=== PATIENT | female | born 1990 | race Caucasian/White ===

== ENCOUNTER 2024-05-16 08:50 | Inpatient (IN) | payer SELFPAY ==
[2024-05-16 09:27] VITALS: BP 127/86; PULSE 105; RESP 16; TEMP 36.7; O2SAT 99
[2024-05-16] MEDS: hyDROXYzine 25 mg Capsule 50 MG PO (09:39)
[2024-05-16] MEDS: OLANZapine 5 mg ODT PO (13:52)
[2024-05-16 13:53] VITALS: BP 114/72; PULSE 106; RESP 16; TEMP 36.9; O2SAT 100
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
[2024-05-16] MEDS: sertraline 50 mg Tablet 25 MG PO (16:30)
[2024-05-16 19:53] VITALS: BMI 27.3
[2024-05-16 19:59] VITALS: BP 115/79; PULSE 89; RESP 16; TEMP 37.1; O2SAT 100
[2024-05-17 06:00] VITALS: BP 113/70; PULSE 84; RESP 16; TEMP 36.8; O2SAT 96
[2024-05-17] MEDS: hyDROXYzine 25 mg Capsule 50 MG PO ×2 (08:10→19:31)
[2024-05-17] MEDS: sertraline 50 mg Tablet 25 MG PO (08:10)
[2024-05-17] MEDS: acetaminophen 325 mg Tablet 650 MG PO (08:10)
[2024-05-17 12:31] VITALS: BP 120/85; PULSE 109; RESP 18; TEMP 36.6; O2SAT 97
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
[2024-05-17 19:27] VITALS: BP 128/87; PULSE 86; RESP 17; O2SAT 98
[2024-05-18 06:00] VITALS: BP 123/75; PULSE 115; RESP 16; TEMP 37.1; O2SAT 97
[2024-05-18] MEDS: ondansetron 4 MG Tablet PO (08:02)
[2024-05-18] MEDS: sertraline 50 mg Tablet PO (08:02)
[2024-05-18] MEDS: acetaminophen 325 mg Tablet 650 MG PO (13:40)
[2024-05-18 14:00] VITALS: BP 113/83; PULSE 117; RESP 18; TEMP 37.2; O2SAT 97
--- NOTE | 2024-05-18 16:23 | W.PM.NPUPNS ---
Subjective NPU Subjective: 34-year-old female with a history of depression, agoraphobia with panic attacks, and PTSD admitted with worsening depression and fleeting suicidal ideation. The patient had reported that she was feeling a little bit better. She had endorsed depression and reported some improved sleep with trazodone. The patient had continued to isolate herself in her room. She had continued report difficulty with being in crowds and with new people. She had reported that she had felt better about going to [place] to live with her sister. Mental Status Exam MSE Comments: Patient is a casually dressed white female with limited hygiene and normal gait. There was no evidence of any abnormal involuntary motor movements tics or tremors appreciated. There was evidence of mild psychomotor retardation. Her mood was described as a little better. Her affect was restricted in range and mood congruent. She denied suicidal ideation. She denied any homicidal ideation. She did not appear to be responding to internal stimuli. There was no clear evidence of delusional thinking. Her attention span appeared fair. Her speech was normal in regards to rate rhythm and prosody. Her thought process was linear logical and goal-directed. Her recent and remote memory were grossly intact. She was alert and oriented to person place time and situation. Her insight is improving. Her judgment is poor. Her impulse control remained guarded. Vitals/I&O/Wt Last Vital Signs Temp 98.7 F 05/18/24 06:00 Pulse 115 H 05/18/24 06:00 Resp 16 05/18/24 06:00 BP 123/75 05/18/24 06:00 Pulse Ox 97 05/18/24 06:00 O2 Del Method Room Air 05/16/24 13:53 Weight last 48 hrs Weight 74.661 kg A&P Assessment and plan (1) MDD (major depressive disorder), recurrent severe, without psychosis: (2) PTSD (post-traumatic stress disorder): (3) Agoraphobia with panic attacks: Plan 34-year-old female with a history of PTSD, and major depressive disorder admitted with suicidal ideation currently on no medications at this time with recent exacerbation of mood stemming from increased stress with loss of 2 children from her home environment which appears to be triggering her past trauma in childhood. #1.? Engage patient in individual milieu and group therapy. #2?? Recommend sober living treatment at the highest level of care to which the patient is willing to commit #3???Continue zoloft 50mg daily. #4?? TO-15 minute checks? #5?? Will attempt to gather collateral information Involuntary Hold Information 96 Hour Hold: 96 Hour Involuntary Admission: No Attestations NPU Medical Necessity Statement*: Inpatient hospitalization is medically necessary and deemed to ?be ?the clinically appropriate intervention ?at this time.? We will monitor/initiate medications and make changes as indicated.? ? The patient?s likely length of stay 3-5 days. Coding Level of Care Code Acute Code for Chg Fwd Diagnoses MDD (major depressive disorder), recurrent severe, without psychosis F33.2 PTSD (post-traumatic stress disorder) F43.10 Agoraphobia with panic attacks F40.01
--- NOTE | 2024-05-18 16:59 | PC.NURSE ---
meds to beds placed in pyxis machine.
[2024-05-18] MEDS: OLANZapine 5 mg ODT PO (17:06)
--- NOTE | 2024-05-18 17:48 | PC.NURSE ---
Patient stated that she feels like she is going to have a panic attack. This nurse administered zyprexa 5mg ODT to patient.
[2024-05-18 20:03] VITALS: BP 106/63; PULSE 78; RESP 16; TEMP 36.9; O2SAT 98
[2024-05-18] MEDS: trazodone 50 mg Tablet PO (20:32)
[2024-05-19 06:00] VITALS: BP 116/71; PULSE 88; RESP 16; TEMP 36.9; O2SAT 98
[2024-05-19] MEDS: sertraline 50 mg Tablet PO (08:38)
[2024-05-19] MEDS: hyDROXYzine 25 mg Capsule 50 MG PO (08:43)
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
[2024-05-19 12:43] VITALS: BP 116/71; PULSE 88; RESP 16; TEMP 36.9; O2SAT 98
== END 2024-05-19 15:14 | disposition home or self-care (01) | DRG 885 ==
PROVIDERS: Admitting Provider Psychiatry & Neurology Psychiatry; PCP Family Medicine; Visit Provider Psychiatry & Neurology Psychiatry
DX: F33.2 Major depressive disorder, recurrent severe without psychotic features (principal); R45.851 Suicidal ideations; F40.01 Agoraphobia with panic disorder; F10.91 Alcohol use, unspecified, in remission; F43.10 Post-traumatic stress disorder, unspecified
CPT/HCPCS: 97165; Q0162